=== PATIENT | female | born 1980 | race Caucasian/White ===

== ENCOUNTER 2020-12-21 20:21 | Emergency (ER) | payer OTHER ==
[~2020-12-21] VITALS: Ht 154.9 cm; Wt 70.5 kg
--- NOTE | 2020-12-21 21:06 | NUR ---
Pt arrived in green scrubs to overflow, accompanied by SO and 5150 written. Pt is tearful and guarded, c/o having a headache. Pt has abrasions on her left wrist, appears to be an attempt at cutting her wrists. Asked patient if she is suicidal and she denies s/i, stating "If I wanted to be I would be already." Pt denies any psyche history or inpatient stays in the past.
[2020-12-21] MEDS ORDERED: NO HOME MEDS (21:39)
[2020-12-21 21:43] LABS: URINE HCG NEGATIVE (NEG)
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
[2020-12-21 21:53] LABS: BASOPHILS % (AUTO) 0.3 % (0-1); EOSINOPHILS # (AUTO) 0.1 X10'3 (0-0.9); EOSINOPHILS % (AUTO) 0.4 % (0-6); HEMATOCRIT 41.5 % (35.0-45.0); HEMOGLOBIN 13.7 g/dl (12.0-16.0); LYMPHOCYTES # (AUTO) 1.6 X10'3 (1.1-4.8); LYMPHOCYTES % (AUTO) 10.4 % (21-51); MEAN CORPUSCULAR HEMOGLOBIN 28.5 PG (27.0-31.0); MEAN CORPUSCULAR HGB CONC 33.1 g/dL (33.0-36.5); MEAN PLATELET VOLUME 9.2 FL (7.4-10.4); MONOCYTES # (AUTO) 0.8 X10'3 (0-0.9); MONOCYTES % (AUTO) 5.5 % (2-12); NEUTROPHILS # (AUTO) 12.7 X10'3 (1.8-7.7); NEUTROPHILS % (AUTO) 83.4 % (42-75); PLATELET COUNT 322 X10'3 (140-440); RED BLOOD COUNT 4.82 X10'6 (4.20-5.60); RED CELL DISTRIBUTION WIDTH 13.3 % (11.5-14.5); WHITE BLOOD COUNT 15.3 X10'3 (4.5-11.0)
[2020-12-21 22:13] LABS: ALANINE AMINOTRANSFERASE 19 U/L (12-78); ALKALINE PHOSPHATASE 80 IU/L (46-116); ANION GAP 11 (8-16); ASPARTATE AMINO TRANSFERASE 12 U/L (10-37); BILIRUBIN,TOTAL 0.5 MG/DL (0.1-1.0); BLOOD UREA NITROGEN 9 MG/DL (7-18); BUN/CREATININE RATIO 8.7 (6.6-38.0); CALCIUM 8.6 MG/DL (8.5-10.1); CHLORIDE 106 MMOL/L (99-107); CREATININE 1.04 MG/DL (0.40-0.90); ETHANOL < 0.010 GM/DL (0.0-0.010); GLUCOSE 110 MG/DL (70-104); POTASSIUM 3.3 MMOL/L (3.5-5.1); SODIUM 142 MMOL/L (135-145); TOTAL CARBON DIOXIDE 24.8 MMOL/L (24-32); eGFR 59 ML/MIN
[2020-12-21 22:14] LABS: URINE AMPHETAMINE SCREEN NEGATIVE (Neg); URINE BARBITUATE SCREEN NEGATIVE (Neg); URINE BENZODIAZEPINES SCREEN NEGATIVE (Neg); URINE CANNABINOID SCREEN NEGATIVE (Neg); URINE COCAINE SCREEN POSITIVE (Neg); URINE METHADONE SCREEN NEGATIVE (Neg); URINE OPIATE SCREEN NEGATIVE (Neg); URINE PHENCYCLIDINE SCREEN NEGATIVE (Neg)
--- NOTE | 2020-12-21 22:50 | NUR ---
P[facility] WAS SENT TO [facility].
--- NOTE | 2020-12-21 23:12 | NUR ---
Pt is in bed asleep
--- NOTE | 2020-12-22 01:17 | NUR ---
pt laying on her right side asleep
[2020-12-22] MEDS ORDERED: acetaminophen 325mg tablet PO ONE (05:15)
--- NOTE | 2020-12-22 07:02 | NUR ---
Assumed care. Pt sleeping comfortably on right side, respirations even and unlabored.
--- NOTE | 2020-12-22 07:03 | NUR ---
Pt sleeping comfortably in mid fowlers position, respirations even and unlabored.
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
--- NOTE | 2020-12-22 11:21 | NUR ---
Pt sleeping comfortably no distress noted. No behaviors to report. Pt will be discharged to family around 1700.
--- NOTE | 2020-12-22 13:30 | NUR ---
Pt ate about 75% of her lunch, then laid back down to rest. No behaviors to report.
--- NOTE | 2020-12-22 14:27 | NUR ---
Pt reports headache 09/18. Pt states ibuprofen works best for her. Received order for Ibuprofen 600mg. Will monitor for effectiveness. Addendum: 12/22/20 at 1437 by MARGO Ice pack given to pt.
[2020-12-22] MEDS ORDERED: ibuprofen 200mg tablet PO ONE (14:30)
[2020-12-22 15:37] VITALS: BP 103/62
--- NOTE | 2020-12-22 15:40 | NUR ---
DISCHARGE NOTE: Patient was discharged from unit at 1535. Pt ambulated independently with mother and PCT. Pt left with all personal belongings. Pt was A&Ox4. Pt left with resources to follow up with substance abuse counseling. Pt denies suicidal thoughts.
== END 2020-12-22 15:42 ==
LOC: ER 20:22
DX: R45.851 Suicidal ideations (principal); Z20.822 Contact with and (suspected) exposure to COVID-19; F14.10 Cocaine abuse, uncomplicated; J45.909 Unspecified asthma, uncomplicated; F17.200 Nicotine dependence, unspecified, uncomplicated; Z88.2 Allergy status to sulfonamides
CPT/HCPCS: 36415; 80053; 80305; 80320; 81025; 85025; 87635; 99285; C9803; 99283